=== PATIENT | female | born 1965 | race Caucasian/White ===

== ENCOUNTER 2017-11-08 18:31 | Emergency (ER) | payer OTHER ==
--- NOTE | 2017-11-08 19:02 | EDM.PDOC ---
ED HPI GENERAL MEDICAL PROBLEM - General Chief Complaint: General Stated Complaint: Migraine & Vomiting Time Seen by Provider: 11/08/17 18:45 Source of Information: Reports: Patient History Limitations: Reports: No Limitations - History of Present Illness INITIAL COMMENTS - FREE TEXT/NARRATIVE: According to patient she has been having migraine headache since last evening. Her headache has got worse and her right side of the head has been throbbing. She did try resting in dark room and has not helped. Has been nauseous and has had 4 episodes of vomiting today. rates her pain at 9/10. No tunnel vision, no blurry vision, no weakness, tingling or numbness.She did try taking 2 doses of imitrex and she vomited both the dose. + photophobia and phonophobia. Pt does have chronic history of migraine headaches. Onset Date: 11/07/17 Onset Time: 18:00 Location: Reports: Head Quality: Reports: Ache Severity: Severe Improves with: Reports: None Worsens with: Reports: None Associated Symptoms: Reports: Headaches, Nausea/Vomiting. Denies: Confusion, Chest Pain, Cough, Diaphoresis, Fever/Chills, Loss of Appetite, Malaise, Rash, Seizure, Shortness of Breath, Syncope, Weakness - Related Data Allergies Allergy/AdvReac Type Severity Reaction Status Date / Time acetaminophen [From Tylenol] Allergy Hives Verified 11/08/17 18:52 metronidazole [From Flagyl] Allergy Hives Verified 11/08/17 18:52 Sulfa (Sulfonamide Allergy Other Verified 11/08/17 18:52 Antibiotics) Home Meds: Home Meds SUMAtriptan [Imitrex] 2 tab PO ASDIRECTED PRN 12/26/16 [History] Doxycycline Hyclate 11/08/17 [History] Past Medical History HEENT History: Reports: None Cardiovascular History: Reports: None Respiratory History: Reports: None Other OB/BYN History: Parity : 2, gravity: 2, 2 miscarriages Musculoskeletal History: Reports: Back Pain, Chronic Oncologic (Cancer) History: Reports: None - Past Surgical History Other Musculoskeletal Surgeries/Procedures:: right knee meniscal injury. left knee: pain at medial collateral ligament region ED ROS GENERAL - Review of Systems Review Of Systems: See Below Constitutional: Denies: Fever, Chills, Malaise HEENT: Reports: Vision Change. Denies: Sinus Problem, Throat Pain, Throat Swelling Respiratory: Denies: Shortness of Breath, Wheezing, Cough, Sputum Cardiovascular: Denies: Chest Pain, Lightheadedness GI/Abdominal: Reports: Nausea, Vomiting. Denies: Abdominal Pain ED EXAM, GENERAL - Physical Exam Exam: See Below Exam Limited By: No Limitations General Appearance: Alert, WD/WN, Mild Distress Eye Exam: Bilateral Eye: EOMI, PERRL Ears: Normal External Exam, Normal Canal, Hearing Grossly Normal, Normal TMs Ear Exam: Bilateral Ear: Auricle Normal, Canal Normal, TM normal Nose: Normal Inspection, Normal Mucosa, No Blood Throat/Mouth: Normal Inspection, Normal Lips, Normal Teeth, Normal Gums, Normal Oropharynx, Normal Voice, No Airway Compromise Head: Atraumatic, Normocephalic Neck: Normal Inspection, Supple, Non-Tender, Full Range of Motion Respiratory/Chest: No Respiratory Distress, Lungs Clear, Normal Breath Sounds, No Accessory Muscle Use, Chest Non-Tender Cardiovascular: Normal Peripheral Pulses, Regular Rate, Rhythm, No Edema, No Gallop, No JVD, No Murmur, No Rub Extremities: Normal Inspection, Normal Range of Motion, Non-Tender, Normal Capillary Refill, No Pedal Edema Neurological: Alert, Oriented, CN II-XII Intact, Normal Cognition, Normal Gait, Normal Reflexes, No Motor/Sensory Deficits Course - Vital Signs Text/Narrative:: Pt has acute migraine headache episode. Pt reassured. Her clinical exam is normal. She did receive toradol 60mg with phenergan 25mg and zofran 4mg IM. Pt advised to go home and ret. also I have dispense 5 tablets of zofran ODDTs to use as needed for her nausea every 8 hrs. rest should help break the cycle. return if symptoms not better. - Orders/Labs/Meds Orders: Active Orders 24 hr Category Date Time Status Ketorolac [Toradol] Med 11/08/17 18:55 Once 60 mg IM ONETIME ONE Promethazine [Phenergan] Med 11/08/17 18:56 Once 25 mg IM ONETIME ONE Departure - Departure Time of Disposition: 19:15 Disposition: Home, Self-Care 01 Condition: Fair Clinical Impression: Migraine - Discharge Information - Problem List & Annotations (1) Migraine SNOMED Code(s): 35928511 Code(s): G43.909 - MIGRAINE, UNSP, NOT INTRACTABLE, WITHOUT STATUS MIGRAINOSUS Status: Acute - Problem List Review Problem List Initiated/Reviewed/Updated: Yes - My Orders Last 24 Hours: My Active Orders 11/08/17 18:55 Ketorolac [Toradol] 60 mg IM ONETIME ONE 11/08/17 18:56 Promethazine [Phenergan] 25 mg IM ONETIME ONE - Assessment/Plan Last 24 Hours: My Active Orders 11/08/17 18:55 Ketorolac [Toradol] 60 mg IM ONETIME ONE 11/08/17 18:56 Promethazine [Phenergan] 25 mg IM ONETIME ONE Assessment:: Migraine episode Plan: Pt has acute migraine headache episode. Pt reassured. Her clinical exam is normal. She did receive toradol 60mg with phenergan 25mg and zofran 4mg IM. Pt advised to go home and ret. also I have dispense 5 tablets of zofran ODDTs to use as needed for her nausea every 8 hrs. rest should help break the cycle. return if symptoms not better.
[2017-11-08] MEDS: Ketorolac 60 MG/2 ML SDV IM ONE (19:04)
[2017-11-08] MEDS: Promethazine 25 MG/ML SDV IM ONE (19:05)
[2017-11-08] MEDS: Ondansetron 4 MG/2 ML SDV IM ONE (19:08)
[2017-11-08 19:12] VITALS: BP 114/58
[2017-11-08] MEDS ORDERED: Ondansetron 4 MG Tab.DIS ONE (19:20)
== END 2017-11-08 19:30 | disposition home or self-care (01) ==
LOC: LB.ED 18:31
DX: G43.909 Migraine, unspecified, not intractable, without status migrainosus (principal); Z88.2 Allergy status to sulfonamides
CPT/HCPCS: 96372; 99283-25; A9270-GY; J1885; J2405; J2550